=== PATIENT | female | born 1985 | race Caucasian/White ===

== ENCOUNTER 2019-04-19 07:42 | Inpatient (IN) ==
[2019-04-19] MEDS ORDERED: OXYTOCIN 30 UNITS/500 ML BAG IV PRN ×3 (08:27→19:23)
[2019-04-19 08:51] LABS: Hemoglobin 12.1 g/dL (12.0-16.0); Mean Corpuscular Hemoglobin 29.4 pg (25-34); Mean Corpuscular Volume 87.6 fL (80-100); Mean Platelet Volume 9.8 fL (7.4-10.4); Platelet Count 198 K/uL (130-400); RDW Coefficient of Variation 14.6 % (11.5-14.5); RDW Standard Deviation 46.4 fL (36.4-46.3); Red Blood Count 4.11 M/uL (4.2-5.4); White Blood Count 8.99 K/uL (4.8-10.8)
[2019-04-19 08:56] LABS: Mean Corpuscular Hgb Conc 33.6 g/dL (32-36)
[2019-04-19 09:09] LABS: Albumin Level 2.6 gm/dl (3.4-5.0); BUN Creatinine Ratio 13.7 (10-20); Creatinine Clr Calc Pharmacy 140.2 ml/min; Est GFR (African American) 126.6; Est GFR (Non-African American) 109.3; Potassium 4.2 mmol/L (3.5-5.1)
[2019-04-19] MEDS ORDERED: miSOPROStoL 50 MCG TAB PO STA (09:10)
--- NOTE | 2019-04-19 09:10 | Obstetrical Progress Note ---
Date of Service April 19, 2019 Subjective met pt and family reviewed PNC induction of labor for hx of HELLP FHR; CAT1 Ctx; minimal VE; ft/50/post Bronson bulb placed with 30cc saline minimal bleeding post placement cervidil PO Results & Data Vital Signs (Past 12 Hours) Vital Signs Temp Pulse Resp BP 04/19/19 08:55 85 143/92 H 04/19/19 08:39 85 130/93 04/19/19 08:24 87 129/88 04/19/19 08:09 85 135/92 04/19/19 08:01 36.3 C L 87 18 134/92 04/19/19 07:53 87 134/92 04/19/19 07:51 36.3 C L 20
[2019-04-19 09:14] LABS: Albumin Globulin Ratio 0.6 (0.9-2); Bilirubin,Total 0.3 mg/dl (0.2-1); Globulin 4.1 gm/dl (2.5-4.0); Total Protein 6.7 gm/dl (6.4-8.2)
[2019-04-19] MEDS: LACTATED RINGER'S 1,000 ML IV PRN ×2 (11:40→17:44)
--- NOTE | 2019-04-19 17:42 | Obstetrical Progress Note ---
Date of Service April 19, 2019 Subjective Doing well FHR; CAT1 Ctx 1-3min Pit; 14Mu Pt tolerating ctx well Results & Data Vital Signs (Past 12 Hours) Vital Signs Temp Pulse Resp BP 04/19/19 17:04 75 139/81 04/19/19 16:25 67 142/84 H 04/19/19 15:02 71 137/91 04/19/19 15:00 36.8 C 16 04/19/19 14:32 60 135/99 04/19/19 13:30 68 20 137/91 04/19/19 12:22 64 20 154/92 H 04/19/19 11:42 68 20 132/84 04/19/19 10:37 85 145/83 H 04/19/19 09:09 74 146/91 H 04/19/19 08:55 85 143/92 H 04/19/19 08:39 85 130/93 04/19/19 08:24 87 129/88 04/19/19 08:09 85 135/92 04/19/19 08:01 36.3 C L 87 18 134/92 04/19/19 07:53 87 134/92 04/19/19 07:51 36.3 C L 20
[2019-04-19] MEDS ORDERED: ePHEDrine sulfate 50 MG/ML AMP ONE (17:47)
[2019-04-19] MEDS ORDERED: fentaNYL citrate 100 MCG/2 ML VIAL ONE (17:47)
[2019-04-19] MEDS ORDERED: BUPIVACAINE 0.25% 30 ML VIAL ONE (17:47)
[2019-04-19] MEDS ORDERED: fentaNYL 2MCG/ML ROPIV 1.25MG/ML 100 ML BAG EPI ONE (17:48)
[2019-04-19] MEDS ORDERED: ONDANSETRON INJ 2 MG/ML 2 ML VIAL IV PRN (18:27)
[2019-04-19] MEDS ORDERED: NALOXONE HCL 1 MG in SODIUM CHLORIDE 0.9% 1000ML 1,000 ML IV PRN (18:27)
[2019-04-19] MEDS ORDERED: NALBUPHINE HCL INJ 10 MG/ML AMP IV PRN (18:27)
[2019-04-19] MEDS ORDERED: DiphenhydrAMINE HCL 50 MG/ML VIAL IV PRN (18:27)
[2019-04-19] MEDS ORDERED: NALOXONE HCL 0.4 MG/1 ML VIAL/CARP IV PRN (18:27)
[2019-04-19] MEDS ORDERED: ePHEDrine sulfate 50 MG/ML AMP IV PRN (18:27)
[2019-04-19] MEDS ORDERED: fentaNYL 2MCG/ML ROPIV 1.25MG/ML 100 ML BAG EPI PRN (18:27)
--- NOTE | 2019-04-19 18:28 | Anesthesiology Consultation ---
Date of Service April 19, 2019 Assessment & Plan (1) Encounter for pre-operative examination: Chart Review Chart Review: Patient NOT seen in Pre Admission Testing and Acceptable Risk for Labor Epidural Consults Requested none ASA ASA2 Proposed Anesthesia Anesthesia Type: Labor Epidural Risk / Benefits Reviewed With: PT / POA / Parent / Guardian, Accepts Plan and Informed Consent Obtained History Height/Weight Height: 5 ft 10 in Weight: 98.883 kg Allergies Allergy/AdvReac Type Severity Reaction Status Date / Time Influenza Virus Vaccines Allergy Severe Pino's Verified 04/19/19 07:20 Palsy Medications Home Medications Medication Instructions Recorded Confirmed Last Taken ferrous sulfate [iron] 325 mg PO DAILY 04/05/19 04/19/19 04/18/19 08:00 PNV cmb#95-ferrous fumarate-FA 1 tab PO DAILY 04/19/19 04/19/19 04/18/19 08:00 [] valacyclovir [Valtrex] 1,000 mg PO Q12H PRN 04/19/19 04/19/19 Unknown Active Medications Generic Name Dose Route Start Last Admin Trade Name Freq PRN Reason Stop Dose Admin Lactated Ringer's 1,000 mls @ 125 mls/hr 04/19/19 08:27 04/19/19 17:44 Lr IV 04/21/19 08:26 999 mls/hr .Q8H PRN Administration L&D Protocol Protocol Oxytocin 30 units in 500 mls @ 16 mls/hr 04/19/19 11:15 04/19/19 17:25 Pitocin IV 04/21/19 11:14 0.96 units/hr .Q24H PRN 16 mls/hr Labor Induction/Augmentation Titration Protocol 0.96 UNITS/HR Past Medical History Medical History Asthma exercise induced History of HELLP syndrome, currently with first History of molar 2018 Migraines [place] teeth removed 2001 Exercise / Class Metabolic Activity II 4-5 Yardwork/Stairs/Walk up hill Past Family History Family History Grandfather (Paternal) Cancer Grandmother (Paternal) Cancer Father Myocardial infarction Past Surgical History Surgical History History of laparoscopic cholecystectomy 2018 Past Anesthesia History No Hx of Anesthesia Complications and No Family Hx of Anesthesia Complications History of PONV No Hx of PONV and No Hx of Motion Sickness Social History Smoking Status: Former smoker tobacco type: cigarettes Hx Alcohol Use: No Hx Substance Use: No substance use type: does not use Physical Exam Vital Signs Last Vital Signs Temp 36.8 C 04/19/19 15:00 Pulse 80 04/19/19 18:26 Resp 16 04/19/19 15:00 BP 162/93 H 04/19/19 18:26 Pulse Ox 100 04/19/19 18:26 ENMT Mouth: no dentition abnormality Thyromental Distance: > or= 3.5 Finger Breadths Mallampati Class: II Neck normal visual inspection Respiratory normal respiratory effort Auscultation: lungs clear to auscultation bilaterally Cardiovascular Rate/Rhythm: regular rate and regular rhythm Psychiatric Orientation: alert Testing Laboratory Results 04/19/19 08:36 04/19/19 08:42
--- NOTE | 2019-04-19 18:32 | Communication Note ---
Date of Service: April 19, 2019 Epidural attempted at L3/4 with typical loss of resistance technique. MADIE was encountered at 6cm, no return of fluid was noted, and catheter was placed. As catheter passed through tip of touhoy needle, patient felt a sharp, transient parasthesia. The needle was removed and CSF was able to be aspirated through the touhoy. The catheter was dosed appropriately for labor as continuous spinal catheter. The patient was educated on symptoms and management of spinal headache. Recommended 24 hours until catheter removal, if the patient is agreeable. Will follow closely post .
[2019-04-19] MEDS ORDERED: miSOPROStoL 200 MCG TAB ONE (18:59)
[2019-04-19] MEDS ORDERED: miSOPROStoL 200 MCG TAB PR ONE (19:23)
[2019-04-19] MEDS ORDERED: DIPHTHERIA/TETANUS/PERTUSSIS 0.5 ML SYR/VIAL IM ONE (19:23)
[2019-04-19] MEDS ORDERED: SUPERCREAM 0.870% 15 GM JAR EXT PRN (19:23)
[2019-04-19] MEDS ORDERED: ACETAMINOPHEN 325 MG TAB PO PRN (19:23)
[2019-04-19] MEDS ORDERED: BISACODYL 10 MG SUPP PR PRN (19:23)
[2019-04-19] MEDS ORDERED: BENZOCAINE 20% AER SPR 82.5 GM CAN EXT PRN (19:23)
[2019-04-19] MEDS ORDERED: HYDROCORTISONE ACETATE 25 MG SUPP PR PRN (19:23)
[2019-04-19] MEDS ORDERED: ACETAMINOPHEN W/CODEINE #3 1 TAB PO PRN (19:23)
--- NOTE | 2019-04-19 19:23 | Obstetrical Progress Note ---
Date of Service April 19, 2019 Subjective delivery note dictated Results & Data Vital Signs (Past 12 Hours) Vital Signs Temp Pulse Resp BP Pulse Ox 04/19/19 19:16 79 166/83 H 04/19/19 19:10 74 166/79 H 04/19/19 19:00 77 171/79 H 04/19/19 18:57 75 175/82 H 04/19/19 18:54 126 H 136/86 04/19/19 18:51 91 H 100 04/19/19 18:50 164 H 174/89 H 04/19/19 18:48 81 173/82 H 04/19/19 18:46 88 197/95 H 100 04/19/19 18:45 18 04/19/19 18:44 73 156/95 H 04/19/19 18:42 70 156/88 H 04/19/19 18:41 70 100 04/19/19 18:40 71 155/87 H 04/19/19 18:38 65 153/81 H 04/19/19 18:36 74 148/81 H 100 04/19/19 18:34 71 152/82 H 04/19/19 18:32 66 154/92 H 04/19/19 18:31 67 100 04/19/19 18:30 75 16 170/91 H 04/19/19 18:29 36.5 C 18 04/19/19 18:28 87 170/76 H 04/19/19 18:26 80 162/93 H 100 04/19/19 18:24 73 146/84 H 04/19/19 18:22 72 143/92 H 04/19/19 18:21 74 100 04/19/19 18:20 71 145/91 H 04/19/19 18:18 77 152/92 H 04/19/19 18:16 71 155/86 H 100 04/19/19 18:15 16 04/19/19 18:14 68 183/99 H 04/19/19 18:13 69 190/107 H 04/19/19 18:11 73 100 04/19/19 18:06 68 100 04/19/19 18:01 75 100 04/19/19 17:56 77 100 04/19/19 17:54 68 185/88 H 04/19/19 17:51 70 100 04/19/19 17:04 75 139/81 04/19/19 16:25 67 142/84 H 04/19/19 15:02 71 137/91 04/19/19 15:00 36.8 C 16 04/19/19 14:32 60 135/99 04/19/19 13:30 68 20 137/91 04/19/19 12:22 64 20 154/92 H 04/19/19 11:42 68 20 132/84 04/19/19 10:37 85 145/83 H 04/19/19 09:09 74 146/91 H 04/19/19 08:55 85 143/92 H 04/19/19 08:39 85 130/93 04/19/19 08:24 87 129/88 04/19/19 08:09 85 135/92 04/19/19 08:01 36.3 C L 87 18 134/92 04/19/19 07:53 87 134/92 04/19/19 07:51 36.3 C L 20
[2019-04-19 19:44] LABS: Basophils # (auto) 0.02 K/uL (0-0.2); Basophils % (auto) 0.2 %; Eosinophils # (auto) 0.07 K/uL (0-0.5); Eosinophils % (auto) 0.6 %; Hematocrit (blood only) 35.2 % (37-47); Hemoglobin 11.8 g/dL (12.0-16.0); Immature Granulocytes # (auto) 0.03 K/uL (0.00-0.02); Immature Granulocytes % (auto) 0.3 %; Lymphocytes % (auto) 15.3 %; Mean Corpuscular Hemoglobin 29.3 pg (25-34); Mean Corpuscular Volume 87.3 fL (80-100); Mean Platelet Volume 10.1 fL (7.4-10.4); Monocytes # (auto) 0.93 K/uL (0.11-0.59); Monocytes % (auto) 7.9 %; Neutrophils # (auto) 8.95 K/uL (1.4-6.5); Neutrophils % (auto) 75.7 %; Platelet Count 199 K/uL (130-400); RDW Coefficient of Variation 14.5 % (11.5-14.5); RDW Standard Deviation 46.2 fL (36.4-46.3); Red Blood Count 4.03 M/uL (4.2-5.4)
--- NOTE | 2019-04-19 20:00 | Delivery Summary ---
DATE OF OPERATION: 04/19/2019 The patient delivered a live infant male in left occiput anterior presentation. There was a loose nuchal cord, which was easily reduced. was delivered and placed on mother's abdomen. Cord was clamped and cut after 1 minute. The 's weight and is in the pediatric record. Cord blood was obtained. Placenta was spontaneously delivered. Inspection of the placenta shows a 3-vessel cord. Placenta looked grossly normal. Inspection of the perineum showed a second-degree midline laceration, which was repaired with 2-0 Vicryl in layers. Rectal exam post repair shows good sphincter tone, no sutures are palpated in the rectum. Estimated blood loss is 450 mL. All instruments were removed from the vagina and accounted for x2 including sponges, laps, needles and retractors. Baby and mother are doing well and stable in recovery. I attest to the content of the Intraoperative Record and any orders documented therein. Any exception s are noted below.
[2019-04-19 20:08] LABS: Mean Corpuscular Hgb Conc 33.5 g/dL (32-36)
[2019-04-19 20:23] LABS: Albumin Level 2.5 gm/dl (3.4-5.0); BUN Creatinine Ratio 14.1 (10-20); Calcium 8.4 mg/dl (8.5-10.1); Creatinine Clr Calc Pharmacy 180.2 ml/min; Est GFR (Non-African American) 121.7; Potassium 3.8 mmol/L (3.5-5.1)
[2019-04-19 20:26] LABS: Albumin Globulin Ratio 0.7 (0.9-2); Bilirubin,Total 0.4 mg/dl (0.2-1); Globulin 3.6 gm/dl (2.5-4.0); Total Protein 6.1 gm/dl (6.4-8.2)
[2019-04-19] MEDS ORDERED: OXYTOCIN 20 UNITS in LACTATED RINGER'S 1,000 ML IV SCH (20:45)
[2019-04-19] MEDS: IBUPROFEN 600 MG TAB PO PRN (21:37)
[2019-04-20] MEDS: IBUPROFEN 600 MG TAB PO PRN ×3 (05:12→20:20)
[2019-04-20 07:43] LABS: Hematocrit (blood only) 30.4 % (37-47); Hemoglobin 10.3 g/dL (12.0-16.0); Mean Corpuscular Hemoglobin 29.5 pg (25-34); Mean Corpuscular Hgb Conc 33.9 g/dL (32-36); Mean Corpuscular Volume 87.1 fL (80-100); Mean Platelet Volume 10.1 fL (7.4-10.4); Platelet Count 179 K/uL (130-400); RDW Coefficient of Variation 14.6 % (11.5-14.5); Red Blood Count 3.49 M/uL (4.2-5.4); White Blood Count 12.26 K/uL (4.8-10.8)
[2019-04-20] MEDS: FERROUS SULFATE 325 MG TAB PO SCH (08:39)
[2019-04-20] MEDS: PRENATAL VITAMIN 1 TAB PO SCH (08:39)
[2019-04-20] MEDS: DOCUSATE SODIUM 100 MG CAP PO SCH ×2 (08:39→20:20)
--- NOTE | 2019-04-20 09:24 | Obstetrical Progress Note ---
Date of Service April 20, 2019 Subjective doing well tired no headaches Physical Exam Constitutional: WD/WN, vitals as above comfortable no edema neg Ramez's abdomen is soft and non-tender Fundus firm Results & Data Vital Signs (Past 12 Hours) Vital Signs Temp Pulse Pulse Resp BP BP Pulse Ox 04/20/19 07:40 36.5 C 72 18 188/82 H 98 04/20/19 05:21 36.9 C 71 18 140/95 99 04/20/19 00:15 36.9 C 71 18 148/84 H 98 04/19/19 22:10 36.7 C 80 18 149/90 H 99 04/19/19 21:46 76 149/90 H 04/19/19 21:31 81 149/88 H Laboratory Results Laboratory Results - last 72 hr 04/19/19 04/19/19 04/19/19 08:36 08:42 19:35 WBC 8.99 11.80 H RBC 4.11 L 4.03 L Hgb 12.1 11.8 L Hct 36.0 L 35.2 L MCV 87.6 87.3 MCH 29.4 29.3 MCHC 33.6 33.5 RDW Std Deviation 46.4 H 46.2 RDW Coeff of Ricardo 14.6 H 14.5 Plt Count 198 199 MPV 9.8 10.1 Immature Gran % (Auto) 0.3 Neut % (Auto) 75.7 Lymph % (Auto) 15.3 [place] % (Auto) 7.9 Eos % (Auto) 0.6 Baso % (Auto) 0.2 Immature Gran # (Auto) 0.03 H Neut # (Auto) 8.95 H Lymph # (Auto) 1.80 [place] # (Auto) 0.93 H Eos # (Auto) 0.07 Baso # (Auto) 0.02 Sodium 137 Potassium 4.2 Chloride 108 H Carbon Dioxide 21 Anion Gap 8.0 BUN 10 Creatinine 0.72 Est Cr Clr Drug Dosing 140.2 Est GFR ( Amer) 126.6 Est GFR (Non-Af Amer) 109.3 BUN/Creatinine Ratio 13.7 Glucose 95 Calcium 9.0 Total Bilirubin 0.3 AST 14 L ALT 10 L Alkaline Phosphatase 145 H Total Protein 6.7 Albumin 2.6 L Globulin 4.1 H Albumin/Globulin Ratio 0.6 L 04/19/19 04/20/19 19:35 06:34 WBC 12.26 H RBC 3.49 L Hgb 10.3 L Hct 30.4 L MCV 87.1 MCH 29.5 MCHC 33.9 RDW Std Deviation 46.0 RDW Coeff of Ricardo 14.6 H Plt Count 179 MPV 10.1 Immature Gran % (Auto) Neut % (Auto) Lymph % (Auto) [place] % (Auto) Eos % (Auto) Baso % (Auto) Immature Gran # (Auto) Neut # (Auto) Lymph # (Auto) [place] # (Auto) Eos # (Auto) Baso # (Auto) Sodium 137 Potassium 3.8 Chloride 108 H Carbon Dioxide 21 Anion Gap 8.0 BUN 8 Creatinine 0.56 L Est Cr Clr Drug Dosing 180.2 Est GFR ( Amer) 141.0 Est GFR (Non-Af Amer) 121.7 BUN/Creatinine Ratio 14.1 Glucose 76 Calcium 8.4 L Total Bilirubin 0.4 AST 12 L ALT 10 L Alkaline Phosphatase 136 H Total Protein 6.1 L Albumin 2.5 L Globulin 3.6 Albumin/Globulin Ratio 0.7 L
--- NOTE | 2019-04-20 18:37 | Anesthesia Procedure Note ---
Date of Service April 20, 2019 Anesthesia Post Epidural Note Vital Signs Vital Signs: Temp Pulse Resp BP Pulse Ox 36.6 C 72 18 139/91 99 04/20/19 15:35 04/20/19 15:35 04/20/19 15:35 04/20/19 15:35 04/20/19 15:35 Pain Intensity Bilateral Abdomen: Pain Intensity: 3 Notes Mental Status: alert / awake / arousable Nausea / Vomiting: adequately controlled Pain: adequately controlled Airway Patency, RR, SpO2: stable & adequate BP & HR: stable & adequate Hydration State: stable & adequate Neuraxial Anesthesia: was administered and sensory block is resolving Anesthetic Complications: no major complications apparent Epidural: Removed without complications and With tip intact
[2019-04-20] MEDS ORDERED: BISACODYL 5 MG TABEC PO SCH (20:00)
[2019-04-21] MEDS: IBUPROFEN 600 MG TAB PO PRN ×2 (03:40→08:49)
[2019-04-21 06:37] LABS: Hematocrit (blood only) 29.5 % (37-47); Hemoglobin 9.9 g/dL (12.0-16.0)
--- NOTE | 2019-04-21 06:57 | Obstetrical Progress Note ---
Date of Service April 21, 2019 Subjective doing well Physical Exam Constitutional: WD/WN, vitals as above comfortable fundus firm neg edema for discharge Results & Data Vital Signs (Past 12 Hours) Vital Signs Temp Pulse Pulse Resp BP BP Pulse Ox 04/21/19 03:38 65 18 132/87 04/20/19 23:10 36.5 C 60 18 144/91 H 04/20/19 20:28 36.6 C 69 18 143/99 H 98 04/20/19 20:16 37.1 C 55 L 18 139/85 100 04/20/19 19:30 36.6 C 66 18 139/65
[2019-04-21] MEDS: DOCUSATE SODIUM 100 MG CAP PO SCH (08:48)
[2019-04-21] MEDS: PRENATAL VITAMIN 1 TAB PO SCH (08:48)
[2019-04-21] MEDS: FERROUS SULFATE 325 MG TAB PO SCH (08:49)
[2019-04-21 10:09] VITALS: O2SAT 99
[2019-04-21 15:57] VITALS: BP 135/85; PULSE 72; TEMP 98.1
== END 2019-04-21 18:00 | disposition home or self-care (01) | DRG 807 ==
LOC: 4S1 07:42 → 4S2 22:16